=== PATIENT | female | born 1955 | race Caucasian/White ===

== ENCOUNTER 2022-09-09 07:38 | Day surgery (SDC) | payer MEDICARE, SELFPAY ==
--- NOTE | 2022-09-08 12:15 | P.CONAN_ITS ---
Documented by User: Sheree Wolfe NP 09/08/22 13:52 HPI - Anesthesia Eval Consult details Narrative: 66yo F for Colonoscopy Hx of stress induced RI 2017 (mother had just ). Previously seen by cardiology but only prn f/u now. Denies CP/SOB with >4 mets. [facility] Past Medical History Medical History (Updated 09/08/22 @ 12:17 by Sheree Wolfe NP) Asthma CAD (coronary artery disease) GERD (gastroesophageal reflux disease) HLD (hyperlipidemia) HTN (hypertension) Hx of myocardial infarction Increased BMI Osteoarthritis Osteoporosis Surgical History Surgical History (Updated 09/08/22 @ 12:17 by Sheree Wolfe NP) H/O ligation of vein H/O: (~1982) Hx of total knee arthroplasty (~2021) Social History Social History Patient Tobacco Use Status: Never used Tobacco Are you DNR?: No Advance Directives: No Advance Directives Information Provided: Yes Nutrition Risks: No Nutritional Risk Meds Allergies Allergy/AdvReac Type Severity Reaction Status Date / Time latex Allergy Unknown Unknown Verified 09/08/22 12:18 Home Medications Medication Instructions Recorded Confirmed Last Taken Type albuterol sulfate 90 mcg/actuation inhalation 09/08/22 09/08/22 Unknown History aerosol inhaler alendronate 70 mg tablet 70 mg PO QWEEK 09/08/22 09/08/22 Unknown History aspirin 81 mg tablet 81 mg PO DAILY 09/08/22 09/08/22 Unknown History atorvastatin 40 mg tablet 40 mg PO DAILY 09/08/22 09/08/22 Unknown History cholecalciferol (vitamin D3) 10 09/08/22 Unknown History mcg (400 unit) tablet diclofenac epolamine 1.3 % 1 patch topical BID 09/08/22 09/08/22 Unknown History transdermal 12 hour patch losartan 100 mg tablet 100 mg PO DAILY 09/08/22 09/08/22 Unknown History melatonin 3 mg tablet mg 09/08/22 Unknown History metoprolol succinate 50 mg 50 mg PO DAILY 09/08/22 09/08/22 Unknown History tablet,extended release 24 hr Exam Exam Date and Time: September 08, 2022 1215 Assessment and Plan Assessment Anesthesia Assessment: Chart Reviewed Documented by User: Nii Jolly MD 09/09/22 08:10 [facility] Past Medical History Medical History (Updated 09/08/22 @ 12:17 by Sheree Wolfe NP) Asthma CAD (coronary artery disease) GERD (gastroesophageal reflux disease) HLD (hyperlipidemia) HTN (hypertension) Hx of myocardial infarction Increased BMI Osteoarthritis Osteoporosis Family History Family history of problems with anesthesia: No Surgical History Surgical History (Updated 09/08/22 @ 12:17 by Sheree Wolfe NP) H/O ligation of vein H/O: (~1982) Hx of total knee arthroplasty (~2021) History of Problems with Anesthesia: No Social History Social History Patient Tobacco Use Status: Never used Tobacco Are you DNR?: No Advance Directives: No Advance Directives Information Provided: Yes Nutrition Risks: No Nutritional Risk Meds Allergies Allergy/AdvReac Type Severity Reaction Status Date / Time latex Allergy Unknown Unknown Verified 09/08/22 12:18 Home Medications Medication Instructions Recorded Confirmed Last Taken Type albuterol sulfate 90 mcg/actuation inhalation 09/08/22 09/08/22 Unknown History aerosol inhaler alendronate 70 mg tablet 70 mg PO QWEEK 09/08/22 09/08/22 Unknown History aspirin 81 mg tablet 81 mg PO DAILY 09/08/22 09/08/22 Unknown History atorvastatin 40 mg tablet 40 mg PO DAILY 09/08/22 09/08/22 Unknown History cholecalciferol (vitamin D3) 10 09/08/22 Unknown History mcg (400 unit) tablet diclofenac epolamine 1.3 % 1 patch topical BID 09/08/22 09/08/22 Unknown History transdermal 12 hour patch losartan 100 mg tablet 100 mg PO DAILY 09/08/22 09/08/22 Unknown History melatonin 3 mg tablet mg 09/08/22 Unknown History metoprolol succinate 50 mg 50 mg PO DAILY 09/08/22 09/08/22 Unknown History tablet,extended release 24 hr Exam Airway Mallampati Class: II TM Dist: >3cm Neck ROM: Limited Heart: rrr Lungs: cta Assessment and Plan Assessment Anesthesia Assessment: Anesthesia Plan Discussed Final Anesthetic Review Family History of Problems with Anesthesia: No History of Problems with Anesthesia: No NPO: Yes ASA Class: I Final Preanesthetic Review: No Changes in Pt Med Stat, Meds/Allgs Chart Reviewed, Consent Obtained/Reviewed and Anes Risks/Benef Reviewed Patient Risk: Low Procedure Risk: Low Anesthetic Plan Anesthetic Plan: MAC: and Agree w/ Assess. and Plan Disposition: Standard PACU
[2022-09-09] MEDS: Lactated Ringers 1,000 ML 100 ML IVCONT (07:42)
[2022-09-09 07:55] VITALS: BMI 34.3
[2022-09-09 08:02] VITALS: BP 114/57; PULSE 56; RESP 18; TEMP 36.7; O2SAT 96
--- NOTE | 2022-09-09 08:53 | MHC.SHP ---
Pre-Procedural Eval Section A Date of Service: 09/09/22 Section B Chief Complaint: Family history of colonic polyps,screening Details of Present Illness: see H&P no changes Relevant Family History (Specify if Yes): No Relevant Social History: None Present Medications: None Medical History: No relevant PMH History of Previous Operations: No relevant previous surgery Allergies: Allergies Allergy/AdvReac Type Severity Reaction Status Date / Time latex Allergy Unknown Unknown Verified 09/08/22 12:18 Review of Systems Sugical H&P ROS: Negative: Constitution, Cardiovascular, Respiratory, Neurological, Psychiatric, Hem-Onc, Allergic/Immunologic, Gastrointestinal, Genitourinary, Musculoskeletal, Integumentary, Endocrine and Eyes/Ears/Nose/Throat Exam Surgical H&P Exam: Normal: HEENT, Normal: Heart, Normal: Lungs, Normal: Extremities, Normal: Abdomen, Normal: Skin and Normal: Neurological Plan Diagnosis/Plan: Unchanged I have reviewed the history and physical and performed a pertinent physical examination on my patient. No changes have occurred unless specified. Time Spent With Patient Time: Total time managing care of this patient today ____ minutes.
--- NOTE | 2022-09-09 09:30 | P.BOP_ITS ---
Brief Operative Note Date of Service: 09/09/22 Pre-op diagnosis: screening Procedure: colonoscopy Surgeon: Bird Vega Anesthesia: MAC Was an Filtration Plant Operator used for this Procedure?: No Estimated blood loss (mL): 0 Pathology: none sent Condition: stable Disposition: PACU
[2022-09-09 09:35] VITALS: BP 124/55; PULSE 61; RESP 61; TEMP 36.7; O2SAT 97
[2022-09-09 09:50] VITALS: BP 153/64; PULSE 65; RESP 16; TEMP 36.7; O2SAT 98
--- NOTE | 2022-09-09 10:04 | OP_ITS ---
DATE OF SERVICE: 09/09/2022 SURGEON: Bird Vega MD INDICATIONS: Colon cancer screening and family history of colon polyps. PREOPERATIVE DIAGNOSIS: POSTOPERATIVE DIAGNOSIS: PROCEDURE PERFORMED: Colonoscopy to the terminal ileum. ESTIMATED BLOOD LOSS: COMPLICATIONS: ANESTHESIA: Monitored anesthesia care. ASSISTANTS: SPECIMENS: DESCRIPTION OF PROCEDURE: A history and physical was performed. The risks and benefits of the procedure were explained to the patient. Informed consent was obtained. The patient was placed in the left lateral decubitus position. A digital rectal exam was performed and was found to be normal. The Olympus pediatric video colonoscope was introduced into the rectum and advanced to the cecum without difficulty. The cecum was identified by transillumination, palpation, and identification of ileocecal valve. Examination was performed. The scope was removed. She tolerated the procedure well and was returned to the recovery area in stable condition. FINDINGS: The terminal ileum was examined and appeared normal. The visualized colonic mucosa was within normal limits without evidence of masses, ulcers, or polyps. There was some liquid stool and some small amount of formed stool, which limited the sensitivity examination for detection of small polyps. This was washed and suctioned as best possible and present mainly in the descending and sigmoid colon. Overall, the exam was considered adequate. There was mild sigmoid diverticulosis. Retroflexed examination showed some small internal hemorrhoids. IMPRESSION: Normal colonoscopy. RECOMMENDATION: 1. Follow up as needed. 2. Repeat colonoscopy could be considered in 5 years because of family history. MD MARK Dickey/JATINL / [id number]
== END 2022-09-09 10:21 | disposition home or self-care (01) ==
PROVIDERS: PCP Internal Medicine Geriatric Medicine; Visit Provider Internal Medicine Gastroenterology
PROC: 0DJD8ZZ Inspection of Lower Intestinal Tract, Via Natural or Artificial Opening Endoscopic (ICD-10-PCS; CPT 45378; principal; 2022-09-09 08:50)
DX: Z12.11 Encounter for screening for malignant neoplasm of colon (principal); Z83.71 Family history of colonic polyps; K57.30 Diverticulosis of large intestine without perforation or abscess without bleeding; K64.8 Other hemorrhoids; K21.9 Gastro-esophageal reflux disease without esophagitis; I25.10 Atherosclerotic heart disease of native coronary artery without angina pectoris; I25.2 Old myocardial infarction; I10 Essential (primary) hypertension; E78.5 Hyperlipidemia, unspecified; J45.909 Unspecified asthma, uncomplicated; Z79.82 Long term (current) use of aspirin; Z79.899 Other long term (current) drug therapy
CPT/HCPCS: G0105